=== PATIENT | female | born 1950 | race African-American/Black ===

== ENCOUNTER 2020-12-07 07:22 | Emergency (ER) | payer BC, MEDICAID ==
[~2020-12-07] VITALS: Ht 152.4 cm; Wt 90.7 kg
[~2020-12-07 07:22] MED LIST: AMLO-79; AMLODIPINE; ASPIRIN; ATOR20TA; ATROVENT; CITA20TA75; CRESTOR; FLUT1DIS3; GLIM1TAB; HYDROCODONE; INSLAN; INSU3INS6; LATANOPROST; LEVOTHYROXINE; TRAZADONE; VIC; XALAO
[2020-12-07] MEDS ORDERED: ONDANSETRON HCL 4MG/2ML INJ IV STA (07:49)
[2020-12-07] MEDS ORDERED: NYSTATIN POWDER 15GM TOP STA (07:49)
[2020-12-07] MEDS ORDERED: MORPHINE SULFATE 4 MG/ML CPJ (NOT FOR IM USE) IV STA (07:49)
[2020-12-07 07:56] LABS: BASOPHILS % 1.1 % (0.0-2.0); EOSINOPHILS % 4.3 % (0.0-5.0); HEMOGLOBIN. 13.5 g/dL (12.0-16.0); LYMPHOCYTES % 35.2 % (20.0-50.0); MEAN CORPUSCULAR HEMOGLOBIN 29.2 pg (28.0-32.0); MEAN CORPUSCULAR VOLUME 88.8 fL (81.0-99.0); MEAN PLATELET VOLUME 8.3 fl (7.4-10.4); NEUTROPHILS % 51.4 % (40.0-76.0); PLATELET 384 x1000/uL (130-400); RED BLOOD CELL COUNT 4.62 mill/uL (4.2-5.4); RED CELL DISTRIBUTION WIDTH 14.5 % (11.6-14.6)
[2020-12-07] MEDS ORDERED: SODIUM CHLORIDE 0.9% 1,000 ML IV ONE (08:00)
[2020-12-07] MEDS ORDERED: PHENAZOPYRIDINE HCL 100MG TABLET PO ONE (08:00)
[2020-12-07 08:02] LABS: CHLORIDE 111 mEq/L (98-107)
[2020-12-07 08:06] LABS: PROTHROMBIN TIME 10.3 sec (9.6-11.0)
[2020-12-07 08:11] LABS: CLARITY URINE CLEAR (CLEAR); COLOR URINE YELLOW (YELLOW); KETONES URINE NEGATIVE (NEGATIVE); LEUKOCYTE ESTERASE URINE TRACE (NEGATIVE); NITRITE URINE NEGATIVE (NEGATIVE); OCCULT BLOOD URINE TRACE (NEGATIVE); PH URINE 7.5 (4.5-8.0); PROTEIN URINE NEGATIVE (NEGATIVE); SPECIFIC GRAVITY URINE 1.016 (1.005-1.030); UROBILINOGEN URINE 0.2 E.U./dL (0.2-1.0)
[2020-12-07] MEDS ORDERED: CEFTRIAXONE 1 G PREMIX 50 ML IV ONE (08:30)
[2020-12-07 10:00] VITALS: BP 140/70
== END 2020-12-07 11:42 | disposition left against medical advice (07) ==
LOC: ER 07:55
DX: N39.0 Urinary tract infection, site not specified (principal); E87.5 Hyperkalemia; B37.9 Candidiasis, unspecified; I10 Essential (primary) hypertension; J45.909 Unspecified asthma, uncomplicated; E11.9 Type 2 diabetes mellitus without complications; Z79.899 Other long term (current) drug therapy
CPT/HCPCS: 36415; 80053; 81003; 83690; 85025; 85610; 87086; 96361; 96374; 96375; 99284; J2270; J2405; J7030

== ENCOUNTER 2023-03-23 10:00 | Emergency (ER) | payer BC, MEDICAID ==
[~2023-03-23] VITALS: Ht 160 cm; Wt 70.0 kg
[~2023-03-23 10:00] MED LIST changes: +AMLO-138; -AMLO-79
[2023-03-23] MEDS ORDERED: TOPUD PO (10:10)
[2023-03-23] MEDS ORDERED: CEPH500C2 PO (10:10)
[2023-03-23] MEDS ORDERED: SULF1TAB48 PO (10:10)
[2023-03-23 10:13] VITALS: O2SAT 98
[2023-03-23 10:31] VITALS: BP 132/75; PULSE 84; RESP 18; TEMP 98.1
== END 2023-03-23 10:33 | disposition home or self-care (01) ==
LOC: ER 10:00
DX: S60.562A Insect bite (nonvenomous) of left hand, initial encounter (principal); L03.114 Cellulitis of left upper limb; M25.562 Pain in left knee; M79.671 Pain in right foot; M79.672 Pain in left foot; J45.909 Unspecified asthma, uncomplicated; E11.9 Type 2 diabetes mellitus without complications; Z80.9 Family history of malignant neoplasm, unspecified; W57.XXXA Bitten or stung by nonvenomous insect and other nonvenomous arthropods, initial encounter; Y93.89 Activity, other specified; Y92.89 Other specified places as the place of occurrence of the external cause; Y99.8 Other external cause status
CPT/HCPCS: 99283